=== PATIENT | female | born 1985 | race Caucasian/White ===

== ENCOUNTER → 2016-07-28 | Outpatient (CLI) | payer OTHER ==
[~2016-07-28] MED LIST: PRENTAB26 PO
== END | disposition home or self-care (01) ==
LOC: C.PATHSPEC 13:10
PROVIDERS: ATTEND Dermatology
DX: C44.91 Basal cell carcinoma of skin, unspecified (principal); D23.9 Other benign neoplasm of skin, unspecified

== ENCOUNTER → 2016-09-14 | Outpatient (CLI) | payer OTHER | END | disposition home or self-care (01) | LOC: C.PATHSPEC 13:53 | PROVIDERS: ATTEND Dermatology | DX: L57.0 Actinic keratosis (principal) ==

== ENCOUNTER → 2017-04-27 | Outpatient (CLI) | payer OTHER | END | disposition home or self-care (01) | LOC: C.PATHSPEC 12:00 | PROVIDERS: ATTEND Plastic Surgery | DX: D03.39 Melanoma in situ of other parts of face (principal) ==